=== PATIENT | female | born 1940 | race Caucasian/White ===

== ENCOUNTER 2025-10-02 14:06 | Emergency (ER) | payer MEDICARE, BC, SELFPAY ==
[2025-10-02 14:21] VITALS: BP 201/110
[2025-10-02 15:03] LABS: Hematocrit 39.8 % (37.0-47.0); Hemoglobin 13.2 g/dL (12.0-16.0); Mean Corp Hgb Conc. 33.2 g/dL (33.0-37.0); Mean Corpuscular Volume 91.1 fL (81.0-99.0); Nucleated Red Blood Cells % 0 %; Platelet Count 190 10^3/uL (130-400); Red Cell Dist. Width 13.3 % (11.5-14.5)
[2025-10-02 15:13] LABS: ALT (SGPT) 28 U/L (0-35); AST (SGOT) 35 U/L (14-36); Albumin 4.3 g/dl (3.5-5.0); Alkaline Phosphatase 90 U/L (38-126); Blood Urea Nitrogen 14 mg/dl (7-17); Calcium 9.1 mg/dl (8.4-10.2); Carbon Dioxide 33 mmol/L (22-30); Chloride 98 mmol/L (98-107); Glucose 95 mg/dl (70-99); Potassium 4.3 mmol/L (3.5-5.1); Sodium 136 mmol/L (135-145); Total Protein 7.6 g/dl (6.3-8.2); eGFR > 60.00
[2025-10-02 15:20] LABS: Troponin I < 0.012 ng/ml
--- NOTE | 2025-10-02 16:50 | ED.GENMED ---
History of Present Illness
General
Chief Complaint: Chest Pain
Source: patient
Exam Limitations: none
Time Seen by Provider: 10/02/25 16:49
Nursing documentation reviewed up to this point in time: agreed with
History of Present Illness
History of Present Illness:
85 yo female with h/o HTN, Hypothyroid presents for chest pain and mid upper back pain that began today at approximately 10:00 AM while she was sitting. The pain was described as feeling like indigestion, localized mid chest, and lasting about two
to three hours. Took ASA 235 mg. No aggravating or relieving factors. She denies nausea, sweating, or lightheadedness. The pain subsided without intervention by about 12:00 PM. Past medical tests, including a stress test performed approximately a
year ago, showed no cardiovascular issues, according to her recollection.
Past History
Past History
ED Past Medical History: HTN and Hypothyroidism
ED Past Surgical History: Cholecystectomy
Social History
Tobacco: Non-smoker
Alcohol: None
Personal:
Living: with family
Review of Systems
Review of Systems
Allergies reviewed?: Yes
All Other Systems: ROS reviewed and negative except as documented in HPI and ROS
Constitutional: Denies fatigue
Respiratory: Denies trouble breathing
Cardiac: Reports chest pain; Denies diaphoresis or palpitations
ABD/GI: Denies abdominal pain or nausea
: Denies dysuria or difficulty voiding
Musculoskeletal: Reports no symptoms
Skin: Reports no symptoms
Neurological: Reports no symptoms
Phy Exam
Physical Exam
Physical Exam:
GENERAL: No acute distress. A&Ox3.
CONSTITUTIONAL: Afebrile.
EYES: clear, conjunctivae normal
ENMT: moist mucus membranes, Pharynx nl
RESPIRATORY: Regular respirations, nonlabored, lungs clear.
CARDIOVASCULAR: Regular rate and rhythm, no murmurs, no rubs.
GI: Soft, nontender, normal BS
MUSCULOSKELETAL: Moves with ease. Well perfused. No ecema
SKIN: Warm, dry, pink
PSYCH: Normal mood and affect. Well kept, interactive and appropriate
NEUROLOGIC: Awake, alert and oriented. No focal neurological deficits
Scores
Heart Score for Chest Pain Patients
STEMI patient?: Not applicable
Course
Orders/Labs/Results
Orders:
Orders
10/02/25 14:08
Electrocardiogram (*1) Urgent
Reason for Study: Chest Pain
EKG- Treatment ONCE
10/02/25 14:41
Complete Blood Count/With Diff Urgent
Comprehensive Metabolic Panel Urgent
Troponin I Urgent
10/02/25 17:01
CXR2 [CR Chest - 2 Views ] Urgent
Comment:
Reason For Exam: chest pain
10/02/25 17:27
Troponin I Urgent
Abnormal Lab Results
10/02/25
14:41
WBC 4.7 L 10^3/uL
(4.8-10.8)
Absolute Lymphs (auto) 0.8 L 10^3/uL
(1.2-3.4)
Lymphocytes % 17.8 L %
(20.5-51.1)
Monocytes % 9.7 H %
(1.7-9.3)
Carbon Dioxide 33 H mmol/L
(22-30)
10/02/25 14:41
10/02/25 14:41
Vital Signs
Initial and Last Documented VS:
Initial Vital Signs
Temp Pulse Resp BP Pulse Ox
97.5 F 60 16 201/110 99
10/02/25 14:21 10/02/25 14:21 10/02/25 14:21 10/02/25 14:21 10/02/25 14:21
Last Documented Vital Signs
Temp Pulse Resp BP Pulse Ox
97.5 F 60 16 167/81 100
10/02/25 14:21 10/02/25 14:21 10/02/25 14:21 10/02/25 20:00 10/02/25 19:57
MDM/Problems Addressed
Differential Diagnosis Includes:
OR, Angina, GERD, AAA
MDM/Problems Addressed:
85 yo female with h/o HTN, Hypothyroid presents for chest pain and mid upper back pain that began today at approximately 10:00 AM while she was sitting. The pain was described as feeling like indigestion, localized mid chest, and lasting about two
to three hours. Took ASA 235 mg. No aggravating or relieving factors. She denies nausea, sweating, or lightheadedness. The pain subsided without intervention by about 12:00 PM. Past medical tests, including a stress test performed approximately a
year ago, showed no cardiovascular issues, according to her recollection.
Pleasant, NAD, asymptomatic
EKG: Sinus bradycardia, HR 58
CBC, CMP unremarkable
Troponin #1 normal
6:30 p.m.
Troponin #2 normal
No indication of cardiac etiology of symptoms.
Refer to blurb writer
7:45 p.m.
CXR: NAD
Pt stable for discharge. No chest pain since arrival.
*Pulse Oximetry
SaO2: 99
Oxygen Mode of Delivery: Room air
Patient hypoxic: no
*EKG
EKG Intrepretation Date: 10/02/25
Interpretation: abnormal
Comparison EKG: no comparison EKG present
Heart Rate: 58
Rate: bradycardiac
Rhythm: sinus
Bartow: normal axis
Interval: normal interval
QRS Pattern: normal QRS
Ischemia: no ischemia
*Critical Care Note
Total Time (30-74mins, 75-104mins- exclusive of procedures): Not Applicable
ED Attending Note
-
Portions of this chart may have been created with voice recognition software.� Occasional wrong word or��sound alike� substitutions may have occurred due to the inherent limitations of voice recognition software.
Discharge Plan
Departure
Patient Disposition: Home (Routine Discharge)
Date of Disposition: 10/02/25
Time of Disposition: 20:03
Patient with high blood pressure during this ER visit?: No
Condition: Good
Discharge Problem:
Atypical chest pain
Instructions: Chest Pain That Is Not Caused by the Heart (DC)
Referrals:
Patti Nash MD [Family Provider, Internal Medicine] - As needed
Brown Gross, [Active, Cardiology] - Next open appointment
Activity Restrictions/Additional Instructions:
As we discussed, nothing worrisome in your workup here today, specifically no indication of a heart attack.
Your EKG and Chest xray look good
I provided you the name of a blurb writer to use if needed.
Interventions
Interventions:
*Risk Screen - Suicide Last Done: 10/02/25 14:21
*General Assessment Last Done: 10/02/25 16:56
*Neglect/Abuse Screening Last Done: 10/02/25 16:56
*ED COVID-19 Vaccine History Last Done: 10/02/25 17:02
*ED Influenza Vaccine History Last Done: 10/02/25 17:02
[facility] Fall Risk Assessment Tool Last Done: 10/02/25 16:56
*Nursing Disposition Last Done: 10/02/25 20:11
ED- Cardiac Assessment Last Done: 10/02/25 16:56
Discharge Date and Time
Discharge Date/Time: 10/02/25 20:16
Print Language: OCCITAN
[2025-10-02 17:04] VITALS: BP 208/108
[2025-10-02 18:00] VITALS: BP 171/83
[2025-10-02 18:05] LABS: Troponin I < 0.012 ng/ml
[2025-10-02 19:00] VITALS: BP 173/156
[2025-10-02 20:00] VITALS: BP 167/81
== END 2025-10-02 20:16 | disposition home or self-care (01) ==
LOC: EMR 14:06
PROVIDERS: Registered Nurse; Student in an Organized Health Care Education/Training Program; EMERGENCY PHYSICIAN Emergency Medicine; FAMILY PHYSICIAN Internal Medicine
DX: R07.89 Other chest pain (principal); I10 Essential (primary) hypertension; E03.9 Hypothyroidism, unspecified
CPT/HCPCS: 99284; 71046; 80053; 84484; 85025; 93005